=== PATIENT | female | born 1965 | race Caucasian/White ===

== ENCOUNTER 2024-05-22 19:48 | Observation (INO) | payer OTHER ==
[2024-05-22 20:37] LABS: Basophils % (A) 1 %; Eosinophils # (A) 0.1 k/uL (0-0.7); Eosinophils % (A) 1 %; HGB 13.7 gm/dL (11.4-16.0); Lymphocytes # (A) 1.4 k/uL (1.0-4.8); Lymphocytes % (A) 19 %; MCH 30.9 pg (25.0-35.0); MCHC 34.1 g/dL (31.0-37.0); MCV 90.5 fL (80.0-100.0); Mean Platelet Volume 8.9; Monocytes # (A) 0.4 k/uL (0-1.0); Monocytes % (A) 5 %; Neutrophils # (A) 5.4 k/uL (1.3-7.7); Neutrophils % (A) 73 %; Platelet Count 284 k/uL (150-450); RBC 4.42 m/uL (3.80-5.40); RDW 12.5 % (11.5-15.5); WBC 7.4 k/uL (3.8-10.6)
[2024-05-22 20:48] LABS: ALT 63 U/L (4-34); AST 41 U/L (14-36); African American GFR (CKD) >90 (>60 ml/min/1.73 sqM); Albumin 4.9 g/dL (3.5-5.0); Alkaline Phosphatase 84 U/L (38-126); Anion Gap 12 mmol/L; Blood Urea Nitrogen 12 mg/dL (7-17); Calcium 9.8 mg/dL (8.4-10.2); Carbon Dioxide 24 mmol/L (22-30); Chloride 103 mmol/L (98-107); Glucose 147 mg/dL (74-99); Lipase 64 U/L (23-300); Magnesium 2.1 mg/dL (1.6-2.3); Non-African American GFR(CKD) 83 (>60 ml/min/1.73 sqM); Potassium 4.1 mmol/L (3.5-5.1); Sodium 139 mmol/L (137-145); Total Bilirubin 0.6 mg/dL (0.2-1.3); Total Protein 7.3 g/dL (6.3-8.2)
[2024-05-22 20:52] LABS: Prothrombin Time 10.7 sec (10.0-12.5)
[2024-05-22 20:53] LABS: Partial Thromboplastin Time 21.7 sec (22.0-30.0)
[2024-05-22 20:57] LABS: NT-Pro-B-Type Natriuretic Pept 47 pg/mL
--- NOTE | 2024-05-22 21:37 | XR ---
EXAMINATION TYPE: XR chest 2V DATE OF EXAM: 05/22/2024 9:13 PM COMPARISON: None. CLINICAL INDICATION: Female, 58 years old with history of Chest Pain, TECHNIQUE: Frontal and lateral views of the chest are obtained. FINDINGS: There is no focal air space opacity, pleural effusion, or pneumothorax seen. The cardiac silhouette size is within normal limits. A metallic device overlies the left mid chest anteriorly. Th e osseous structures are intact. IMPRESSION: No acute cardiopulmonary process. [facility], , 05/22/2024 9:34 PM
[2024-05-22] MEDS: MORPHINE SULFATE 4 MG/ML SYRINGE IVP STA (22:13)
[2024-05-22] MEDS ORDERED: NALOXONE 0.4 MG/ML 1 ML VIAL IV PRN (22:29)
--- NOTE | 2024-05-22 22:29 | ED ---
Chest Pain HPI - General Chief Complaint: Chest Pain Stated Complaint: chest pain Time Seen by Provider: 05/22/24 19:55 Source: patient Mode of arrival: ambulatory Limitations: no limitations - History of Present Illness Initial Comments: 58-year-old female with past medical history of hypertension who presents emergency department reporting chest pain. Patient reports to a sharp pain in her chest which radiates up to her left neck. Reports to a squeezing sensation in her left arm. Patient checked her blood pressure at home and it was high. Patient was recently diagnosed with high blood pressure and started on metoprolol. States that today was the first time she took a dose of the medication. She took 25 mg. Denies feeling ill after taking the medication but started having the chest pain and checked her blood pressure. States that her blood pressure this morning before taking the pill was 130 systolic. Patient denies any history of coronary disease. She is supposed to be having an upcoming echo and stress test. She denies history of DVT or PE. No calf pain or swelling. No other alleviating, precipitating or modifying factors - Related Data Home Medications Medication Instructions Recorded Confirmed L.acidoph,Paracasei, B.lactis 1 cap PO DAILY 05/22/24 05/22/24 [Probiotic] Metamucil Gummy 1 tab PO HS 05/22/24 05/22/24 Metoprolol Succinate (ER) [Toprol 25 mg PO DAILY 05/22/24 05/22/24 Xl] Omeprazole 40 mg PO AC-BRKFST 05/22/24 05/22/24 Allergies Allergy/AdvReac Type Severity Reaction Status Date / Time azithromycin [From Zithromax] AdvReac Rash/Hives Verified 05/22/24 20:43 cephalexin [From Keflex] AdvReac Unknown Verified 05/22/24 20:43 fluconazole [From Diflucan] AdvReac Rash/Hives Verified 05/22/24 20:43 Review of Systems ROS Statement: Those systems with pertinent positive or pertinent negative responses have been documented in the HPI. ROS Other: All systems not noted in ROS Statement are negative. Past Medical History Past Medical History: Hypertension Additional Past Medical History / Comment(s): hepatic cyst History of Any Multi-Drug Resistant Organisms: None Reported Additional Past Surgical History / Comment(s): colonoscopy Past Psychological History: Anxiety Smoking Status: Never smoker Past Alcohol Use History: Occasional Past Drug Use History: Marijuana General Exam Limitations: no limitations Course Vital Signs 05/22/24 05/22/24 19:49 22:15 Temperature 98.2 F Pulse Rate 97 82 Respiratory 20 18 Rate Blood Pressure 196/120 172/124 O2 Sat by Pulse 96 Oximetry Chest Pain MDM - MDM Was pt. sent in by a medical professional or institution (, PA, VAN CDL DRIVER, urgent care, hospital, or long term...) When possible be specific @ -[No] Did you speak to anyone other than the patient for history (EMS, parent, family, police, friend...)? What history was obtained from this source @ -[No] Did you review nursing and triage notes (agree or disagree)? Why? @ -[I reviewed and agree with nursing and triage notes] Were old charts reviewed (outside hosp., previous admission, EMS record, old EKG, old radiological studies, urgent care reports/EKG's, long term records)? Report findings @ -[No old charts were reviewed] Differential Diagnosis (chest pain, altered mental status, abdominal pain women, abdominal pain men, vaginal bleeding, weakness, fever, dyspnea, syncope, headache, dizziness, GI bleed, back pain, seizure, CVA, palpatations, mental health, musculoskeletal)? @ -[not applicable] EKG interpreted by me (3pts min.). @ -Yes and demonstrates sinus rhythm with a rate of 92. NH interval 139. QRS 101. QTc of 403. No acute ST segment elevations. Mild ST depression in 2 and aVF X-rays interpreted by me (1pt min.). @ -[None done] CT interpreted by me (1pt min.). @ -[None done] U/S interpreted by me (1pt. min.). @ -[None done] What testing was considered but not performed or refused? (CT, X-rays, U/S, labs)? Why? @ -[None] What meds were considered but not given or refused? Why? @ -[None] Did you discuss the management of the patient with other professionals (professionals i.e. , VITA, VAN CDL DRIVER, lab, RT, psych nurse, social economist, fertilizer supervisor, teacher, ict help desk officer, case finisher)? Give summary @ -[No] Was smoking cessation discussed for >3mins.? @ -[No] Was critical care preformed (if so, how long)? @ -[No] Were there social determinants of health that impacted care today? How? (Homel essness, low income, unemployed, alcoholism, drug addiction, transportation, low edu. Level, literacy, decrease access to med. care, halfway, rehab)? @ -[No] Was there de-escalation of care discussed even if they declined (Discuss DNR or withdrawal of care, Hospice)? DNR status @ -[No] What co-morbidities impacted this encounter? (DM, HTN, Smoking, COPD, CAD, Cancer, CVA, ARF, Chemo, Hep., AIDS, mental health diagnosis, sleep apnea, morbid obesity)? @ -[None] Was patient admitted / discharged? Hospital course, mention meds given and route, prescriptions, significant lab abnormalities, going to OR and other pertinent info. @ -[hospital course] Undiagnosed new problem with uncertain prognosis? @ -[No] Drug Therapy requiring intensive monitoring for toxicity (Heparin, Nitro, Insulin, Cardizem)? @ -[No] Were any procedures done? @ -[No] Diagnosis/symptom? @ -[default] Acute, or Chronic, or Acute on Chronic? @ -[default] Uncomplicated (without systemic symptoms) or Complicated (systemic symptoms)? @ -[default] Side effects of treatment? @ -[No] Exacerbation, Progression, or Severe Exacerbation? @ -[No] Poses a threat to life or bodily function? How? (Chest pain, [place], PR, pneumonia, PE, COPD, DKA, ARF, appy, cholecystitis, CVA, Diverticulitis, Homicidal, Suicidal, threat to staff... and all critical care pts) @ -[No] Disposition Clinical Impression: Chest pain, Accelerated hypertension Disposition: ADMITTED IP TO THIS [facility] Condition: Stable Is patient prescribed a controlled substance at d/c from ED?: No Referrals: Rishi Melchor MD [Primary Care Provider] - 1-2 days Time of Disposition: 22:27 Decision to Admit Reason: Admit from EC Decision Date: 05/22/24 Decision Time: 22:27
[2024-05-22] MEDS: hydrALAZINE HCL 20 MG/ML 1 ML VIAL IVP STA (23:00)
--- NOTE | 2024-05-23 01:42 | P.HPIM ---
History of Present Illness H&P Date: 05/23/24 Patient is a 58-year-old female with history of hypertension presents to the ER with hypertensive urgency and chest pain. Patient states that she was diagnosed with hypertension couple of days ago by her scrap materials buyer and she was started on metoprolol 25 mg p.o. daily. She has been keeping a log of her blood pressure from past the 2 months and her BP generally range between 140/90. Today her blood pressure reading was over 200/138 around 4 pm and couple of hours later she also started experiencing episodes of sharp substernal chest pain, 7 out of 10, nonradiating. She experienced 3 such episodes before presenting to the ER. Patient denies any nausea, vomiting, diaphoresis. Patient denies any previous episodes of chest pain. She has no history of CAD/CVA. Patient does admit to being slightly anxious at times. She takes 5 mg of marijuana for sleep. Last taken yesterday. Patient denies headaches, blurry vision, shortness of breath, numbness, weakness in upper and lower extremities. Laboratory data: WBC 7.4, hemoglobin 13.7, MCV 90.5, platelet count 284, PT 10.7, INR 1.0, APTT 2 1.7, sodium 139, potassium 4.1, chloride 103, bicarb 24, BUN 12, creatinine 0.79, glucose 147, calcium 9.8, magnesium 2.1, AST 41, ALT 63, ALP 84, troponin less than 0.012 Images: Chest x-ray interpreted independently shows no acute cardiopulmonary process EKG interpreted independently shows normal sinus rhythm with NE interval 139 ms, QRS duration of 101 ms, QTc 403 ms. Poor R wave progression noted. Vitals: Tmax 98.2 F, pulse rate 97, respiratory 20, BP 196/120 on admission, oxygen saturation 96% on room air Review of systems: Pertinent positives and negatives as discussed in HPI, a complete review of systems was performed and all other systems are negative. Social history: Tobacco: Former smoker, quit in 2004 Alcohol: 2-3 drinks of bourbon on weekends Recreational drugs: Marijuana for sleep Travel: No recent Family History: Father had CVA, mother had cardiac arrhythmia and hypertension Physical examination: Vital signs reviewed General: non toxic, no distress, appears at stated age, overweight Derm: no unusual rashes/lesions, warm Head: atraumatic, normocephalic, symmetric Eyes: EOMI, no lid lag, anicteric sclera, pupils equal round reactive to light ENT: Nose and ears atraumatic Neck: No cervical lymphadenopathy, trachea midline, supple Mouth: no lip lesion, mucus membranes moist Cardiovascular: S1S2 reg, no murmur, positive dorsalis pedis pulse bilateral, no edema Lungs: CTA bilateral, no rhonchi, no rales, no accessory muscle use Abdominal: soft, nontender to palpation, no guarding Ext: muscle strength 5 out of 5 in all 4 extremities grossly, no gross muscle atrophy, no contractures, Neuro: CN II-XI grossly intact, no gross focal neuro deficits Psych: Alert, oriented, appropriate affect Assessment/Plan: This is a Patient is a 58-year-old female with history of hypertension presents to the ER with hypertensive urgency and chest pain. Case was discussed with the Emergency Room provider and decision was made to admit the patient for hypertensive urgency and chest pain. #Hypertensive urgency, unknown etiology BP on admission 196/120 with MAP of 145 Patient was given 10 mg of hydralazine IV once stat in ED clonidine 0,2 mg po TID PRN for SBP >180 Troponin less than 0.012 Order bilateral renal ultrasound to rule out secondary cause of hypertension Order urine drug screen resume metoprolol 25 mg po daily #Chest pain, rule out ACS Troponin less than 0.012 Continue to trend troponin Heart score: 2 points Consult cardiology Order lipid panel Order echocardiogram Continue cardiac telemetry xanax 0.5 mg po tid prn anxiety #Hyperglycemia Serum glucose 147 Accu-Chek and/scale insulin Order HbA1c # Transaminitis AST 41, ALT 63, ALP 84 Continue monitor CMP DVT prophylaxis: Lovenox 40 mg subcu daily GI prophylaxis: Resume omeprazole 40 mg p.o. daily F: Oral diet E: Replete as needed N: Heart of diet A: Patient ambulatory at baseline patient reports pain over the inner upper right thigh , with palpating cord like lesion under skin , check d dimer if positive , then check venous doppler US , no recent travel hospital stay , no history of blood clots The patient is admitted with an anticipated less than than 2 midnight stay for evaluation of hypertensive urgency and chest pain CODE STATUS: Full code Discussed with: Patient Anticipated discharge place: Pending clinical course Dictation was produced using [employer] software. Please excuse any grammatical, word or spelling errors. I have seen and evaluated the patient today. I Discussed the case with the resident and agree with the resident's findings I edited the assessment and plan as necessary as documented in the resident's note. Past Medical History Past Medical History: Hypertension Additional Past Medical History / Comment(s): hepatic cyst History of Any Multi-Drug Resistant Organisms: None Reported Additional Past Surgical History / Comment(s): colonoscopy Past Psychological History: Anxiety Smoking Status: Never smoker Past Alcohol Use History: Occasional Past Drug Use History: Marijuana Medications and Allergies Home Medications Medication Instructions Recorded Confirmed Type L.acidoph,Paracasei, B.lactis 1 cap PO DAILY 05/22/24 05/22/24 History [Probiotic] Metamucil Gummy 1 tab PO HS 05/22/24 05/22/24 History Metoprolol Succinate (ER) [Toprol 25 mg PO DAILY 05/22/24 05/22/24 History Xl] Omeprazole 40 mg PO AC-BRKFST 05/22/24 05/22/24 History Allergies Allergy/AdvReac Type Severity Reaction Status Date / Time azithromycin [From Zithromax] AdvReac Rash/Hives Verified 05/22/24 20:43 cephalexin [From Keflex] AdvReac Unknown Verified 05/22/24 20:43 fluconazole [From Diflucan] AdvReac Rash/Hives Verified 05/22/24 20:43 Physical Exam Vitals: Vital Signs Temp Pulse Resp BP Pulse Ox 05/23/24 00:43 94 18 156/101 95 05/23/24 00:03 161/96 05/22/24 23:32 109 H 18 165/107 05/22/24 23:02 75 18 181/108 05/22/24 22:15 82 18 172/124 05/22/24 19:49 98.2 F 97 20 196/120 96 Intake and Output 05/22/24 05/22/24 05/23/24 14:59 22:59 06:59 Other: Weight 77.111 kg Results CBC & Chem 7: 05/22/24 20:26 05/22/24 20:26 Labs: Abnormal Lab Results - Last 24 Hours (Table) 05/22/24 05/22/24 Range/Units 20:26 20: APTT 21.7 L (22.0-30.0) sec Glucose 147 H (74-99) mg/dL AST 41 H (14-36) U/L ALT 63 H (4-34) U/L
[2024-05-23] MEDS: ALPRAZolam 0.5 MG TAB PO PRN (02:24)
[2024-05-23] MEDS: cloNIDine HCL 0.2 MG TAB PO PRN (02:24)
[2024-05-23 06:08] LABS: Basophils % (A) 0 %; Eosinophils # (A) 0.1 k/uL (0-0.7); Eosinophils % (A) 2 %; HCT 37.7 % (34.0-46.0); HGB 12.6 gm/dL (11.4-16.0); Lymphocytes # (A) 1.5 k/uL (1.0-4.8); Lymphocytes % (A) 24 %; MCH 30.4 pg (25.0-35.0); MCHC 33.5 g/dL (31.0-37.0); MCV 90.8 fL (80.0-100.0); Mean Platelet Volume 8.5; Monocytes # (A) 0.3 k/uL (0-1.0); Monocytes % (A) 5 %; Neutrophils % (A) 67 %; Platelet Count 259 k/uL (150-450); RBC 4.15 m/uL (3.80-5.40); RDW 12.6 % (11.5-15.5); WBC 6.1 k/uL (3.8-10.6)
[2024-05-23 06:25] LABS: Glucose,Whole Blood 133 mg/dL (70-110)
[2024-05-23 06:30] LABS: Glucose 126 mg/dL (74-99); Sodium 138 mmol/L (137-145)
[2024-05-23 06:31] LABS: African American GFR (CKD) >90 (>60 ml/min/1.73 sqM); Anion Gap 9 mmol/L; Blood Urea Nitrogen 12 mg/dL (7-17); Calcium 9.5 mg/dL (8.4-10.2); Carbon Dioxide 25 mmol/L (22-30); Chloride 104 mmol/L (98-107); Non-African American GFR(CKD) >90 (>60 ml/min/1.73 sqM); Potassium 3.9 mmol/L (3.5-5.1)
[2024-05-23] MEDS: PANTOPRAZOLE 40 MG TABLET PO SCH (06:35)
[2024-05-23] MEDS: INSULIN ASPART (NovoLOG) 100 UNIT/ML VIAL SQ SCH (06:35)
[2024-05-23 07:51] LABS: Amphetamine Screen,Urine Not Detected (NotDetected); Barbiturate Screen,Urine Not Detected (NotDetected); Benzodiazepines Screen,Urine Detected (NotDetected); Cocaine Screen,Urine Not Detected (NotDetected); Methadone Screen, Urine Not Detected (NotDetected); Opiate Screen,Urine Not Detected (NotDetected); Oxycodone Screen, Urine Not Detected (NotDetected); Phencyclidine Screen,Urine Not Detected (NotDetected); Tricyclic Antidepressant,Urine Not Detected (NotDetected); Urn Cannabinoid Scrn Detected (NotDetected)
[2024-05-23] MEDS: HEPARIN SODIUM,PORCINE 5,000 UNIT/ML 1 ML VIAL SQ SCH (08:10)
[2024-05-23 09:13] LABS: Chol/HDL Ratio 2.96 Ratio; LDL Cholesterol,Calculated 101.7 mg/dL (0.0-131.0)
--- NOTE | 2024-05-23 09:42 | US ---
EXAMINATION TYPE: US renal artery duplex complet DATE OF EXAM: 05/23/2024 Exam done portable COMPARISON: NONE CLINICAL INDICATION: Female, 58 years old with history of HTN urgency; TECHNIQUE: Grayscale, color Doppler and spectral Doppler imaging of the bilateral renal arteries and kidneys. FINDINGS: MEASUREMENTS: RENAL SIZE: Right Kidney: 9.5 x 5.8 x 5.5cm Left Kidney: 9.6 x 5.5 x 4.4cm Right Kidney: wnl Left Kidney: wnl Abd Aorta: wnl RESISTANCE INDEX Right: 0.77 Left: 0.68 RA/AO RATIO (< 3.5 ) Right: 1.9 Left: 2.0 RENAL ARTERY VELOCITY ( < 180 cm/s) Right: 155.1 Left: 164.4 Grayscale imaging of the kidneys and show no evidence for hydronephrosis or mass. No renal calculi or cysts visualized. IMPRESSION: No evidence for renal artery stenosis bilaterally. [facility], , 05/23/2024 9:40 AM
[2024-05-23] MEDS: METOPROLOL SUCCINATE (ER) 25 MG TAB.ER.24H PO SCH (11:19)
[2024-05-23] MEDS: amLODIPine 5 MG TAB PO SCH (11:26)
[2024-05-23 11:34] VITALS: RESP 17
[2024-05-23 12:54] LABS: Glucose,Whole Blood 151 mg/dL (70-110)
--- NOTE | 2024-05-23 13:20 | P.CRDCN ---
History of Present Illness Consult date: 05/23/24 Reason for Consult (text): Acute chest pain, accelerated hypertension History of present illness: This is a 58-year-old female with past medical history of hypertension, GERD, hepatic cyst that is being monitored. We have been asked to evaluate the patient for acute chest pain and accelerated hypertension. Patient gives history that she saw a gas flow regulator, Dr. George Rosario, for the first time 2 days ago. She states she went to a gas flow regulator because when she had a colonoscopy they were concerned that her heart rate did not drop which would would expected with anesthesia. She was keeping track of her blood pressure readings at home a nd most systolic blood pressures were in the 140s. At her appointment, she was placed on an event monitor and also started on metoprolol succinate 25 mg daily. Yesterday, she took the medication for the first time and following that, her blood pressure becoming very elevated up to 208 systolic. She came into the hospital for evaluation. Patient presented with a blood pressure of 196/120. Now, blood pressure 115/73, heart rate 78, pulse ox 97% on room air. Patient did have some vague chest discomfort as well. Patient is status post 1 dose of IV morphine and hydralazine 10 mg IV push. Patient quit smoking in 2004. She drinks alcohol about 2 drinks per week. She denies any recent stress testing or echocardiogram. -EKG: Sinus rhythm, LVH with nonspecific ST changes -Chest x-ray: No acute process -Renal ultrasound: No evidence of WEST bilaterally -Laboratory studies: CBC, D-dimer, INR electrolytes and renal function are normal. Troponin negative x 3. proBNP 47. Urine drug screen is positive for benzodiazepines and marijuana. AST 41, ALT 63. Magnesium 2.1. -Home cardiac medications: Metoprolol succinate 25 mg daily. Review Of Systems: At the time of my exam: CONSTITUTIONAL: Denies fever or chills. HEENT: Denies blurred vision, vision changes, or eye pain. Denies hemoptysis CARDIOVASCULAR: Denies chest pain. Denies orthopnea. Denies PND. Denies palpitations RESPIRATORY: Denies shortness of breath. GASTROINTESTINAL: Denies abdominal pain. Denies nausea or vomiting. HEMATOLOGIC: Denies bleeding disorders. GENITOURINARY: Denies any blood in urine. SKIN: Denies puritis. Denies rash. Physical examination: Gen: This is a 58-year-old female in no acute distress VS: reviewed HEENT: Head is atraumatic, normocephalic. Pupils equal, round. Sclerae is anicteric. NECK: Supple. No JVD. LUNGS: Clear to auscultation. No wheezes or rhonchi. No intercostal retractions. HEART: Regular rate and rhythm. No murmur. ABDOMEN: Soft No tenderness. EXTREMITIES: No pedal edema. No calf tenderness. NEUROLOGICAL: Patient is awake, alert and oriented x3. Assessment: Accelerated hypertension History of hypertension GERD Hepatic cyst Plan: Discontinue metoprolol and Catapres Start patient on Norvasc 5 mg daily Obtained stress echocardiogram today Obtain 2-D echocardiogram and Doppler study to assess cardiac structure and function If stress testing is unremarkable, patient is cleared for discharge. Patient may follow-up with Dr. Alonso in 1 to 2 weeks. Thank you kindly for this consultation. Nurse practitioner note has been reviewed, I agree with documented findings and plan of care. Patient was seen and examined. Past Medical History Past Medical History: Hypertension Additional Past Medical History / Comment(s): hepatic cyst History of Any Multi-Drug Resistant Organisms: None Reported Additional Past Surgical History / Comment(s): colonoscopy Past Anesthesia/Blood Transfusion Reactions: No Reported Reaction Past Psychological History: Anxiety Smoking Status: Never smoker Past Alcohol Use History: Occasional Past Drug Use History: Marijuana Medications and Allergies Home Medications Medication Instructions Recorded Confirmed Type L.acidoph,Paracasei, B.lactis 1 cap PO DAILY 05/22/24 05/22/24 History [Probiotic] Metamucil Gummy 1 tab PO HS 05/22/24 05/22/24 History Metoprolol Succinate (ER) [Toprol 25 mg PO DAILY 05/22/24 05/22/24 History Xl] Omeprazole 40 mg PO AC-BRKFST 05/22/24 05/22/24 History Allergies Allergy/AdvReac Type Severity Reaction Status Date / Time azithromycin [From Zithromax] AdvReac Rash/Hives Verified 05/22/24 20:43 cephalexin [From Keflex] AdvReac Unknown Verified 05/22/24 20:43 fluconazole [From Diflucan] AdvReac Rash/Hives Verified 05/22/24 20:43 Physical Exam Vitals: Vital Signs Temp Pulse Pulse Resp BP BP Pulse Ox 05/23/24 07:00 97.7 F 78 16 115/73 97 05/23/24 02:00 97.4 F L 87 17 111/71 98 05/23/24 00:43 94 18 156/101 95 05/23/24 00:03 161/96 05/22/24 23:32 109 H 18 165/107 05/22/24 23:02 75 18 181/108 05/22/24 22:15 82 18 172/124 05/22/24 19:49 98.2 F 97 20 196/120 96 Intake and Output 05/22/24 05/23/24 05/23/24 22:59 06:59 14:59 Other: # Voids 1 Weight 77.111 kg 77.111 kg Results 05/23/24 04:58 05/23/24 04:58 Cardiac Enzymes 05/22/24 05/22/24 05/22/24 Range/Units 20:26 20:26 23:40 AST 41 H (14-36) U/L Troponin I <0.012 <0.012 (0.000-0.034) ng/mL 05/23/24 Range/Units 04:58 AST (14-36) U/L Troponin I <0.012 (0.000-0.034) ng/mL Coagulation 05/22/24 Range/Units 20:26 PT 10.7 (10.0-12.5) sec APTT 21.7 L (22.0-30.0) sec CBC 05/22/24 05/23/24 Range/Units 20:26 04:58 WBC 7.4 6.1 (3.8-10.6) k/uL RBC 4.42 4.15 (3.80-5.40) m/uL Hgb 13.7 12.6 (11.4-16.0) gm/dL Hct 40.0 37.7 (34.0-46.0) % Plt Count 284 259 (150-450) k/uL Comprehensive Metabolic Panel 05/22/24 05/23/24 Range/Units 20:26 04:58 Sodium 139 138 (137-145) mmol/L Potassium 4.1 3.9 (3.5-5.1) mmol/L Chloride 103 104 (98-107) mmol/L Carbon Dioxide 24 25 (22-30) mmol/L BUN 12 12 (7-17) mg/dL Creatinine 0.79 0.60 (0.52-1.04) mg/dL Glucose 147 H 126 H (74-99) mg/dL Calcium 9.8 9.5 (8.4-10.2) mg/dL AST 41 H (14-36) U/L ALT 63 H (4-34) U/L Alkaline Phosphatase 84 (38-126) U/L Total Protein 7.3 (6.3-8.2) g/dL Albumin 4.9 (3.5-5.0) g/dL Current Medications Generic Name Dose Route Start Last Admin Trade Name Freq PRN Reason Stop Dose Admin Alprazolam 0.5 mg 05/23/24 02:09 05/23/24 02:24 Alprazolam 0.5 Mg Tab PO 0.5 mg TID PRN Administration Anxiety Clonidine 0.2 mg 05/23/24 02:09 05/23/24 02:24 Clonidine Hcl 0.2 Mg Tab PO 0.2 mg TID PRN Administration Blood Pressure - High Heparin Sodium (Porcine) 5,000 unit 05/23/24 08:00 05/23/24 08:10 Heparin Sodium,Porcine 5,000 Unit/Ml 1 Ml Vial SQ Not Given Q8HR [facility] Insulin Aspart 0 unit 05/23/24 07:30 05/23/24 06:35 Insulin Aspart (Novolog) 100 Unit/Ml Vial SQ Not Given ACHS [facility] Protocol Metoprolol Succinate 25 mg 05/23/24 09:00 Metoprolol Succinate (Er) 25 Mg Tab.Er.24h PO DAILY [facility] Naloxone HCl 0.2 mg 05/22/24 22:29 Naloxone 0.4 Mg/Ml 1 Ml Vial IV Q2M PRN Opioid Reversal Pantoprazole Sodium 40 mg 05/23/24 07:30 05/23/24 06:35 Pantoprazole 40 Mg Tablet PO Not Given AC-BRKFST [facility] Intake and Output 05/22/24 05/23/24 05/23/24 22:59 06:59 14:59 Other: # Voids 1 Weight 77.111 kg 77.111 kg 05/23/24 04:58 05/23/24 04:58
--- NOTE | 2024-05-23 14:42 | P.PN ---
Subjective Progress Note Date: 05/23/24 Hospital Course: Patient is a 58-year-old female with history of hypertension presents to the ER with hypertensive urgency and chest pain. 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 daily. She has been keeping a log of her blood pressure from past the 2 months and her BP generally range between 140/90. Today her blood pressure reading was over 200/138 around 4 pm and couple of ho urs later she also started experiencing episodes of sharp substernal chest pain, 7 out of 10, nonradiating. She experienced 3 such episodes before presenting to the ER. Patient denies any nausea, vomiting, diaphoresis. Patient denies any previous episodes of chest pain. She has no history of CAD/CVA. Patient does admit to being slightly anxious at times. She takes 5 mg of marijuana for sleep . Last taken yesterday. Patient denies headaches, blurry vision, shortness of breath, numbness, weakness in upper and lower extremities. Laboratory data: WBC 7.4, hemoglobin 13.7, MCV 90.5, platelet count 284, PT 10.7, INR 1.0, APTT 21.7, sodium 139, potassium 4.1, chloride 103, bicarb 24, BUN 12, creatinine 0.79, glucose 147, calcium 9.8, magnesium 2.1, AST 41, ALT 63, ALP 84, troponin less than 0.012 Images: Chest x-ray interpreted independently shows no acute cardiopulmonary process EKG interpreted independently shows normal sinus rhythm with ME interval 139 ms, QRS duration of 101 ms, QTc 403 ms. Poor R wave progression noted. Vitals: Tmax 98.2 F, pulse rate 97, respiratory 20, BP 196/120 on admission, oxygen saturation 96% on room air Subjective: Patient seen and examined at bedside. No acute events overnight. No acute complaint. Pertinent positives and negatives as discussed above, a complete review of systems was performed and all other systems are negative. Vitals: Signs Reviewed Physical Exam: General: nontoxic, no distress, appears at stated age Derm: warm, dry, intact Head: atraumatic, normocephalic, symmetric Eyes: EOMI, anicteric sclera Mouth: no lip lesion, mucus membranes moist Cardiovascular: S1 S2 reg, no murmur, rubs, or gallops Lungs: CTA bilateral, no rhonchi, no rales, no accessory muscle use Abdominal: soft, non-tender to palpataion, no appreciable organomegaly Extremities: no gross muscle atrophy, no edema, no contractures Neuro: Alert, Oriented, CNII-XII grossly intact, gait normal Psych: well appearing, appropriate affect Data Received Today: Pertinent Labs: Lipid panel total cholesterol 186, LDL 101.7, HDL 62.9, triglycerides 107, troponin <0.012 x 2 UDS positive for benzodiazepines and marijuana Imaging: Echocardiogram pending Renal artery duplex displaying no evidence of stenosis bilaterally Assessment/Plan: This is a Patient is a 58-year-old female with history of hypertension presents to the ER with hypertensive urgency and chest pain. #Hypertensive urgency, unknown etiology BP on admission 196/120 with MAP of 145 Patient was given 10 mg of hydralazine IV once stat in ED clonidine 0.2 mg po TID PRN for SBP >180 Troponin < 0.012 Cardiology started patient on amlodipine 5 mg daily Order urine drug screen resume metoprolol 25 mg po daily #Chest pain, rule out ACS Troponin less than 0.012 Continue to trend troponin Heart score: 2 points lipid panel pending A1c pending Order echocardiogram pending Continue cardiac telemetry xanax 0.5 mg po tid prn anxiety Cardiology note reviewed, want to do stress test today, if unremarkable will be cleared by cardiology #Hyperglycemia Serum glucose 147 Accu-Chek and/scale, if insulin Order HbA1c Monitor for hypoglycemia # Transaminitis AST 41, ALT 63, ALP 84 Continue monitor CMP # GERD Resume omeprazole 40 mg p.o. daily DVT prophylaxis: heparin 5000 unit sq q8hr F: Oral diet E: Replete as needed N: Heart of diet A: Patient ambulatory at baseline Code status: FULL CODE Anticipated discharge place: Pending clinical course Anticipated discharge time: Pending clinical course Malena Dudley MD PGY-1 IM Dictation was produced using [email or web address] dictation software. please excuse any grammatical, word or spelling errors. I have seen and evaluated the patient today. Discussed with the resident and agree with the residents finding and plan as documented in the resident's note. Changes highlighted in blue font. This is an update note, no charge associated with this note. Objective - Vital Signs Vital signs: Vital Signs Temp 97.4 F L 01/23/25 02:00 Pulse 87 05/23/24 02:00 Resp 17 05/23/24 02:00 BP 111/71 05/23/24 02:00 Pulse Ox 98 05/23/24 02:00 FiO2 Intake & Output 05/22/24 05/23/24 05/23/24 18:59 06:59 18:59 Weight 77.111 kg Other: # Voids 1 - Labs CBC & Chem 7: 05/23/24 04:58 05/23/24 04:58 Labs: Abnormal Lab Results - Last 24 Hours (Table) 05/22/24 05/22/24 05/23/24 Range/Units 20:26 20:26 04:58 APTT 21.7 L (22.0-30.0) sec Glucose 147 H 126 H (74-99) mg/dL POC Glucose (mg/dL) (70-110) mg/dL AST 41 H (14-36) U/L ALT 63 H (4-34) U/L 05/23/24 Range/Units 06:15 APTT (22.0-30.0) sec Glucose (74-99) mg/dL POC Glucose (mg/dL) 133 H (70-110) mg/dL AST (14-36) U/L ALT (4-34) U/L
[2024-05-23 16:36] VITALS: BP 130/82; PULSE 92; TEMP 97.9
--- NOTE | 2024-05-23 16:37 | CA ---
Transthoracic Echo Report Name: Sheron Goel Age: 58 Gender: F : 1965 Exam Date: 05/23/2024 09:15 Exam Location: [facility] Ht (in): 64 Wt (lb): 170 Ordering Physician: Alejandra Mullins DO Attending/Referring Phys: [id number], Harpreet Circulation Tender Cornelia Saldaña RDCS Procedure CPT: Indications: HTN, chest pain Cardiac Hx: Technical Quality: Good Contrast 1: Total Dose (mL): Contrast 2: Total Dose (mL): MEASUREMENTS (Male / Female) Normal Values 2D ECHO LV Diastolic Diameter PLAX 4.6 cm 4.2 - 5.9 / 3.9 - 5.3 cm LV Systolic Diameter PLAX 3.3 cm IVS Diastolic Thickness 1.0 cm 0.6 - 1.0 / 0.6 - 0.9 cm LVPW Diastolic Thickness 0.9 cm 0.6 - 1.0 / 0.6 - 0.9 cm LV Relative Wall Thickness 0.4 RV Internal Dim ED PLAX 3.0 cm LVOT Diameter 1.9 cm Aortic Root Diameter 2.6 cm LA Systolic Diameter LX 3.5 cm 3.0 - 4.0 / 2.7 - 3.8 cm LV Diastolic Volume MOD BP 84.0 cm??? 67 - 155 / 56 - 104 cm??? LV Systolic Volume MOD BP 31.9 cm??? 22 - 58 / 19 - 49 cm??? LV Ejection Fraction MOD BP 62.0 % >= 55 % LV Cardiac Index MOD BP 1902.5 cm???/min???m??? LV Diastolic Volume MOD 4C 79.8 cm??? LV Systolic Volume MOD 4C 32.1 cm??? LV Ejection Fraction MOD 4C 59.8 % LV Cardiac Index MOD 4C 1742.7 cm???/min???m??? LV Diastolic Length 4C 7.6 cm LV Systolic Length 4C 6.3 cm LV Diastolic Volume MOD 2C 86.7 cm??? LV Systolic Volume MOD 2C 31.1 cm??? LV Ejection Fraction MOD 2C 64.1 % LV Cardiac Index MOD 2C 2028.7 cm???/min???m??? LV Diastolic Length 2C 7.8 cm LV Systolic Length 2C 6.1 cm DOPPLER Mitral E Point Velocity 60.6 cm/s Mitral A Point Velocity 68.7 cm/s Mitral E to A Ratio 0.9 MV Deceleration Time 244.4 ms MV E' Velocity 4.8 cm/s Mitral E to MV E' Ratio 12.6 TR Peak Velocity 197.9 cm/s TR Peak Gradient 15.7 mmHg Right Atrial Pressure 5.0 mmHg Pulmonary Artery Systolic Pressu 20.7 mmHg Right Ventricular Systolic Press 20.7 mmHg FINDINGS Left Ventricle Left ventricular ejection fraction is estimated at 60-65 %. Normal left ventricular systolic function with no obvious regional wall motion abnormalities. Right Ventricle Normal right ventricular size and function. Right Atrium Normal right atrial size. No right atrial thrombus or mass seen. Left Atrium Normal left atrial size. Mitral Valve Structurally normal mitral valve. No mitral stenosis. Trace mitral regurgitation. Aortic Valve Trileaflet aortic valve. No aortic valve stenosis or regurgitation. Thickened aortic valve without stenosis. Tricuspid Valve Structurally normal tricuspid valve. No tricuspid stenosis. Trace tricuspid regurgitation. Pulmonic Valve Pulmonic valve not well visualized. No pulmonic stenosis. Pericardium No pericardial or pleural effusion. Aorta Normal size aortic root and proximal ascending aorta. CONCLUSIONS Left ventricular ejection fraction 60-65% Trace mitral regurgitation Trace tricuspid regurgitation No pericardial effusion Previewed by: Dr. Luiz Alonso DO (Electronically Signed) Final Date: 23 May 2024 16:36
--- NOTE | 2024-05-23 16:42 | CA ---
Stress Echo Report Sheron Goel Age: 58 Gender: F : 1965 Exam Date: 05/23/2024 12:20 Exam Location: [facility] Ht (in): 64 Wt (lb): 170 Ordering Physician: Gillian Leyva Referring Physician: [id number] Canela Cultural Historian: CLAUDY, Technologist Procedure CPT: Indication: chest pain, HTN ICD-9 Codes: Rhythm: Patient History: Chest pain and palpitations Cardiac Medications: Medications in past 24 hours: Contrast: Stress Results Protocol: Vincent Total dose(mL): Exercise Duration (min:sec): Max ST Depression (mm): Angina Score: Minaya Score: METS: 10.3 Resting HR: 95 Resting BP: 133 / 85 Peak HR: 165 Peak BP: / 96 Max Predicted HR: 161 102 % Max Predicted HR Target HR: 137 Double Product: Stress Summary: BP Response: Reason for Termination: Reached target heart rate or work-load Cardiac Symptoms: No symptoms ECG Analysis Resting ECG: Stress ECG: Arrhythmia: Echo Analysis Resting Echo: Peak Echo Analysis: MEASUREMENTS (Male/Female) Normal Values CONCLUSIONS Patient underwent exercise stress echo with a Vincent protocol treadmill stress test. Patient exercised into Stage 3 for a total of 9 minutes and 9 seconds reaching a total of 10.3 METS. Patient's maximum heart rate was 165 which represented 102 % age-predicted maximum heart rate. Stress EKG portion: At baseline patient's EKG showed normal sinus rhythm, normal axis, minimal 0.[address] depressions in the inferior leads.. At peak exercise, EKG showed no significant change from baseline. Stress echo portion: 2-D echocardiogram was performed in the parasternal long, personal short, apical 2 and apical four-chamber views at rest, peak exercise and in recovery. At baseline, echocardiogram showed left ventricular ejection fraction 55% without wall motion abnormalities. With peak exercise, echocardiogram shows improvement in left ventricular ejection fraction, increase contractility, decrease in left ventricular end systolic dimension without wall motion abnormalities consistent with a normal response to exercise. Conclusions: 1. Nonspecific stress EKG portion secondary baseline EKG abnormalities. 2. Normal stress echo response to exercise without evidence of inducible ischemia. 2. Good exercise capacity. Dr. Luiz Alonso DO (Electronically Signed) Final Date: 23 May 2024 16:41
--- NOTE | 2024-05-23 17:15 | P.DS ---
Providers Date of admission: 05/22/24 22:35 Expected date of discharge: 05/23/24 Attending physician: Emily Hummel MD Consults: 05/22/24 22:29 Consult Physician Urgent Consulting Provider: [facility] Consult Reason/Comments: acute chest pain, accelerated htn Do you want consulting provider notified?: Yes Primary care physician: Rishi Melchor [facility] Hospital Course: Discharge Diagnosis: Hypertensive urgency Chest pain Hyperglycemia Transaminitis GERD Hospital Course: Patient is a 58-year-old female with history of hypertension presents to the ER with hypertensive urgency and chest pain. Patient states that she was diagnosed with hypertension couple of days ago by her [employer] d[employer] and she was started on metoprolol 25 mg p.o. daily. She has been keeping a log of her blood pressure from past the 2 months and her BP generally range between 140/90. Today her blood pressure reading was over 200/138 around 4 pm and couple of hours later she also started experiencing episodes of sharp substernal chest pain, 7 out of 10, nonradiating. She experienced 3 such episodes before presenting to the ER. Patient denies any nausea, vomiting, diaphoresis. Patient denies any previous episodes of chest pain. She has no history of CAD/CVA. Patient does admit to being slightly anxious at times. She takes 5 mg of marijuana for sleep. Last taken yesterday. Patient denies headaches, blurry vision, shortness of breath, numbness, weakness in upper and lower extremities. Laboratory data: WBC 7.4, hemoglobin 13.7, MCV 90.5, platelet count 284, PT 10.7, INR 1.0, APTT 21.7, sodium 139, potassium 4.1, chloride 103, bicarb 24, BUN 12, creatinine 0.79, glucose 147, calcium 9.8, magnesium 2.1, AST 41, ALT 63, ALP 84, troponin less than 0.012 Images: Chest x-ray interpreted independently shows no acute cardiopulmonary process EKG interpreted independently shows normal sinus rhythm with ME interval 139 ms, QRS duration of 101 ms, QTc 403 ms. Poor R wave progression noted. Renal artery duplex normal showing no signs of stenosis Vitals: Tmax 98.2 F, pulse rate 97, respiratory 20, BP 196/120 on admission, oxygen saturation 96% on room air Patient was admitted to internal medicine service with a cardiology consultation. While admitted echocardiogram showed an ejection fraction of 60- 65%, trace mitral regurg, trace tricuspid regurg, no pericardial effusion. Stress echo was negative as well. Lipid panel was within normal limits. Patient will discontinue metoprolol and start on Norvasc. She was cleared by cardiology. She is to follow-up with cardiology and her PCP. She is being discharged home. Vital signs reviewed and stable. Physical examination: Vital signs reviewed General: non toxic, no distress, appears at stated age, normal weight Derm: no unusual rashes/lesions, warm Head: atraumatic, normocephalic, symmetric Eyes: EOMI, anicteric sclera, pupils equal round reactive to light ENT: Nose and ears atraumatic Neck: No cervical lymphadenopathy, trachea midline, supple Mouth: no lip lesion, mucus membranes moist Cardiovascular: S1S2 reg, no murmur, positive dorsalis pedis pulse bilateral, no edema Lungs: CTA bilateral, no rhonchi, no rales, no accessory muscle use Abdominal: soft, nontender to palpation, no guarding Ext: muscle strength 5 out of 5 in all 4 extremities grossly, no gross muscle atrophy Neuro: CN II-XI grossly intact, no gross focal neuro deficits Psych: Alert, oriented to person, place, and time A total of greater than 30 minutes of time were spent preparing this complex discharge summary. Patient was discharge on 01/23/2025 at 17:05. Malena Dudley MD PGY-1 IM Dictation was produced using [employer] dictation software. please excuse any gramma tical, word or spelling errors. I have seen and evaluated the patient today. Discussed with the resident and agree with the residents finding and plan as documented in the resident's note. Changes highlighted in blue font. Patient Condition at Discharge: Stable Plan - Discharge Summary Discharge Rx Participant: No New Discharge Prescriptions: New amLODIPine [Norvasc] 5 mg PO DAILY #90 tab Continue Omeprazole 40 mg PO AC-BRKFST Metamucil Gummy 1 tab PO HS L.acidoph,Paracasei, B.lactis [Probiotic] 1 cap PO DAILY Discontinued Metoprolol Succinate (ER) [Toprol Xl] 25 mg PO DAILY Discharge Medication List L.acidoph,Paracasei, B.lactis [Probiotic] 1 cap PO DAILY 05/22/24 [History] Metamucil Gummy 1 tab PO HS 05/22/24 [History] Omeprazole 40 mg PO AC-BRKFST 05/22/24 [History] amLODIPine [Norvasc] 5 mg PO DAILY #90 tab 05/23/24 [Rx] Follow up Appointment(s)/Referral(s): Luiz Alonso DO [STAFF PHYSICIAN] - 1 Week Rishi Melchor MD [Primary Care Provider] - 1-2 days Patient Instructions/Handouts: Chest Pain (DC), Chronic Hypertension (DC) Activity/Diet/Wound Care/Special Instructions: Please follow up with PCP and cardiology. Discharge Disposition: HOME SELF-CARE
== END 2024-05-23 17:53 | disposition home or self-care (01) ==
LOC: EC 19:48 → 6NMEDSUR 22:35
PROVIDERS: ADMIT Internal Medicine; ATTEND Internal Medicine
DX: R07.2 Precordial pain (principal); I16.0 Hypertensive urgency; I10 Essential (primary) hypertension; R73.9 Hyperglycemia, unspecified; K21.9 Gastro-esophageal reflux disease without esophagitis; K76.89 Other specified diseases of liver; F41.9 Anxiety disorder, unspecified; M54.2 Cervicalgia; R29.898 Other symptoms and signs involving the musculoskeletal system; Z79.899 Other long term (current) drug therapy; Z88.1 Allergy status to other antibiotic agents; Z88.3 Allergy status to other anti-infective agents; Z87.891 Personal history of nicotine dependence
CPT/HCPCS: 96374; 99285; 36415; 93005 ×2; 93306; 93351; 85379; 83880; 80061; 80053; 80048; 83690; 83735; 84484 ×2; 85025 ×2; 85610; 85730; 80306; 83036; 71046; 93975; G0378 ×2; J0360